=== PATIENT | male | born 1990 | race American Indian/Alaskan Native ===

== ENCOUNTER 2018-06-01 14:33 | Emergency (ER) | payer OTHER ==
[2018-06-01 14:57] VITALS: BP 125/93
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
== END 2018-06-01 16:31 | disposition home or self-care (01) ==
LOC: ED 14:33
DX: M54.2 Cervicalgia (principal); V89.2XXA Person injured in unspecified motor-vehicle accident, traffic, initial encounter; Y93.89 Activity, other specified; Y92.488 Other paved roadways as the place of occurrence of the external cause; Y99.8 Other external cause status
CPT/HCPCS: 99282